=== PATIENT | male | born 1980 | race Caucasian/White ===

== ENCOUNTER 2025-04-20 21:50 | Emergency (ER) | payer BC ==
[~2025-04-20] VITALS: Ht 180.3 cm; Wt 122.5 kg
[2025-04-20 22:30] LABS: APPEARANCE,URINE SLIGHTLY CLOUDY (CLEAR); BLOOD, URINE 3+ Ery/uL (NEGATIVE); LEUKOCYTE ESTERASE ,URINE NEGATIVE (NEGATIVE); NITRITE, URINE NEGATIVE (NEGATIVE); UGLUCOSE NEGATIVE (NEGATIVE)
[2025-04-20] MEDS: IV NS 0.9% 1,000 ML BAG IV ONE (22:31)
[2025-04-20] MEDS ORDERED: CT SWABBABLE VALVE TRANS SET 1 EA INFUS.SET MC ONE (22:32)
[2025-04-20] MEDS ORDERED: IOHEXOL-300 100 ML VIAL IV ONE (22:32)
[2025-04-20] MEDS: KETOROLAC TROMETHAMINE INJ 30 MG/ML VIAL IV ONE (22:33)
[2025-04-20] MEDS ORDERED: IV NS 0.9% 250 ML IV ONE (22:33)
[2025-04-20 22:39] LABS: PLATELET COUNT (AUTO) 227 K/uL (150-450); RED BLOOD CELL COUNT(AUTO) 4.99 MIL/uL (4.5-6.0); RED CELL DISTRIBUTION WIDTH 13.4 % (11.5-15.0); WHITE BLOOD COUNT (AUTO) 6.9 K/uL (4.3-11.0)
[2025-04-20 22:49] LABS: ADD URINE CULTURE NO
[2025-04-20 22:51] LABS: ASPARTATE AMINOTRANSFERASE 21.0 U/L (15-37); CALCIUM, SERUM 8.8 mg/dL (8.5-10.1); CREATININE 1.3 mg/dL (0.6-1.3); SODIUM SERUM 140.0 mmol/L (136-145); TOTAL PROTEIN, SERUM 7.1 g/dL (6.4-8.2); UREA NITROGEN, BLOOD 19.0 mg/dL (7-18)
[2025-04-20 22:54] LABS: CALCIUM OXALATE CRYSTALS,UR Few /HPF (None Seen)
[2025-04-21] MEDS ORDERED: CYCL5TAB PO (00:57)
[2025-04-21] MEDS ORDERED: IBUP-1957 PO (00:57)
[2025-04-21] MEDS ORDERED: TAMS-12 PO (01:01)
[2025-04-21 01:34] VITALS: BP 130/70; TEMP 98.8; O2SAT 96
== END 2025-04-21 01:34 | disposition home or self-care (01) ==
LOC: ER 22:08
DX: N13.2 Hydronephrosis with renal and ureteral calculous obstruction (principal); Z79.1 Long term (current) use of non-steroidal anti-inflammatories (NSAID)
CPT/HCPCS: 99285; 74177; 96374; 96361; 85025; 80048; 83690; 80076; 81001; 36415; J1885; J7030; J7050; Q9967